=== PATIENT | female | born 1970 | race Two or more races ===

== ENCOUNTER 2020-08-28 14:39 | Emergency (ER) | payer MEDICAID, OTHER ==
[~2020-08-28] VITALS: Ht 154.9 cm; Wt 99.3 kg
[2020-08-28 14:50] VITALS: BP 157/71
[2020-08-28] MEDS ORDERED: methylPREDNISolone SOD SUCC 125 MG/2 ML VL IM ONE (15:15)
== END 2020-08-28 17:45 | disposition home or self-care (01) ==
LOC: ER 14:39
DX: R06.02 Shortness of breath (principal); J45.909 Unspecified asthma, uncomplicated; Z20.828 Contact with and (suspected) exposure to other viral communicable diseases
CPT/HCPCS: 36415; 71045; 87426; 96372; 99284; J2930